=== PATIENT | male | born 1955 | race Caucasian/White ===

== ENCOUNTER 2017-05-29 08:40 | Day surgery (SDC) | payer OTHER ==
[2017-05-27 13:14] VITALS: BMI 24.8
[~2017-05-29 08:40] MED LIST: LACTATED RINGERS 1,000 ML IV SCH
[2017-05-29 08:56] VITALS: TEMP 98.2
[2017-05-29] MEDS ORDERED: LIDOCAINE 1% 20 ML VIAL (10MG/ML) FOR IV START INTRADERMA ONE (08:56)
[2017-05-29] MEDS ORDERED: LACTATED RINGERS 1,000 ML IV ONE (08:56)
[2017-05-29] MEDS ORDERED: PROPOFOL 10 MG/ML 20 ML VIAL IV ONE (09:29)
--- NOTE | 2017-05-29 09:52 | P.PCN ---
Date of Procedure: 05/29/17 Preoperative Diagnosis: Postoperative Diagnosis: Procedure(s) Performed: BRIEF HISTORY: Patient is a 61-year-old pleasant white male, scheduled for an elective colonoscopy as a part of screening for colorectal neoplasia. PROCEDURE PERFORMED: Colonoscopy with biopsy. PREOPERATIVE DIAGNOSIS: Screening for colon cancer. IV sedation per Anesthesia. PROCEDURE: After informed consent was obtained, the patient, was brought into the endoscopy unit. IV sedation was administered by Anesthesia under continuous monitoring. Digital rectal examination was normal. Initially the Olympus CF- 160 flexible video colonoscope was then inserted in the rectum, gradually advanced into the cecum without any difficulty. Careful examination was performed as the scope was gradually being withdrawn. Ileocecal valve and the appendiceal orifice were visualized and appeared normal. Prep was excellent. The base of the cecum there was a 5 mm polyp that was removed by biopsy. In the ascending colon there was a 2 mm polyp that was removed by biopsy. The rest of the mucosa of the cecum, ascending colon, transverse colon, descending colon, sigmoid colon, and rectum appeared normal. In the proximal rectum there was a 5 mm polyp removed by biopsy. Retroflexion was performed in the rectum and no lesions were seen. The patient tolerated the procedure well. IMPRESSION: 5 mm cecal polyp status post removal by biopsy 2 mm ascending colon polyp status post biopsy 5 mm proximal rectal polyp status post biopsy RECOMMENDATIONS: Findings of this examination were discussed with the patient as well as his family. He was advised to follow with the biopsy results. If the biopsy shows a tubular adenoma he can have a repeat colonoscopy in 5 years. Implants: Indications for Procedure: Operative Findings: Description of Procedure:
[2017-05-29 10:08] VITALS: BP 135/92; PULSE 68; RESP 18
== END 2017-05-29 10:37 | disposition home or self-care (01) ==
LOC: ORWHC2ENDO 08:40
PROVIDERS: ATTEND Internal Medicine Gastroenterology
DX: Z12.11 Encounter for screening for malignant neoplasm of colon (principal); D12.0 Benign neoplasm of cecum; D12.8 Benign neoplasm of rectum; I10 Essential (primary) hypertension; Z86.718 Personal history of other venous thrombosis and embolism; Z79.899 Other long term (current) drug therapy
CPT/HCPCS: 88305; 45380; J2704

== ENCOUNTER 2022-01-22 08:44 | Day surgery (SDC) | payer MEDICARE, BC ==
[2022-01-20 14:32] VITALS: BMI 23.8
[~2022-01-22 08:44] MED LIST changes: +LIDOCAINE 1% (10MG/ML) FOR IV START INTRADERMA PRN
[2022-01-22 09:52] VITALS: TEMP 97.6
[2022-01-22] MEDS ORDERED: PROPOFOL 10 MG/ML 20 ML VIAL IV ONE (10:21)
--- NOTE | 2022-01-22 10:33 | P.PCN ---
Date of Procedure: 01/22/22 Procedure(s) Performed: BRIEF HISTORY: Patient is a 66-year-old pleasant male scheduled for an elective colonoscopy as a part of evaluation of prior history of colon polyps. Last colonoscopy was 5 years ago. PROCEDURE PERFORMED: Colonoscopy with snare polypectomy PREOPERATIVE DIAGNOSIS: Review of colon polyps. IV sedation per Anesthesia. PROCEDURE: After informed consent was obtained, the patient, was brought into the endoscopy unit. IV sedation was administered by Anesthesia under continuous monitoring. Digital rectal examination was normal. Initially the Olympus CF-160 flexible video colonoscope was then inserted in the rectum, gradually advanced into the cecum without any difficulty. Careful examination was performed as the scope was gradually being withdrawn. Ileocecal valve and the appendiceal orifice were visualized and appeared normal. Prep was excellent. Mucosa of the cecum, ascending colon, transverse colon, descending colon, sigmoid colon, and rectum appeared normal. The proximal rectum there was a 7 mm polyp that was removed by snare polypectomy Retroflexion was performed in the rectum and no lesions were seen. The patient tolerated the procedure well. IMPRESSION: 7 mm rectal polyp status post polypectomy Rest of the colon appeared normal . RECOMMENDATIONS: Findings of this examination were discussed with the patient [as well as a family. He was advised to follow with the biopsy results. If the biopsy reveals adenoma he can have a repeat colonoscopy in 5 years.
[2022-01-22 10:59] VITALS: BP 133/93; PULSE 57; RESP 18
== END 2022-01-22 11:25 | disposition home or self-care (01) ==
LOC: ORWHC2ENDO 08:44
PROVIDERS: ATTEND Internal Medicine Gastroenterology
DX: Z12.11 Encounter for screening for malignant neoplasm of colon (principal); D12.8 Benign neoplasm of rectum; Z86.010 Personal history of colon polyps; I10 Essential (primary) hypertension; Z79.899 Other long term (current) drug therapy
CPT/HCPCS: 88305; 45385; J2704

== ENCOUNTER → 2022-07-01 | Outpatient (CLI) | payer MEDICARE, BC ==
--- NOTE | 2022-07-02 08:45 | CA ---
Transthoracic Echo Report Name: Greg Ruiz Age: 66 Gender: M : 1955 Exam Date: 07/01/2022 11:21 Exam Location: [place] [facility] Ht (in): 76 Wt (lb): 195 Ordering Physician: Thiago Crane MD Attending/Referring Phys: Center Customer Service Associate Shirin Gallagher RDCS Procedure CPT: Indications: M79.89 leg swelling Cardiac Hx: Technical Quality: Fair Contrast 1: Total Dose (mL): Contrast 2: Total Dose (mL): MEASUREMENTS (Male / Female) Normal Values 2D ECHO LV Diastolic Diameter PLAX 4.5 cm 4.2 - 5.9 / 3.9 - 5.3 cm LV Systolic Diameter PLAX 3.8 cm IVS Diastolic Thickness 1.8 cm 0.6 - 1.0 / 0.6 - 0.9 cm LVPW Diastolic Thickness 1.2 cm 0.6 - 1.0 / 0.6 - 0.9 cm LV Relative Wall Thickness 0.7 RV Internal Dim ED PLAX 4.2 cm LA Volume 107.7 cm??? 18 - 58 / 22 - 52 cm??? M-MODE Aortic Root Diameter MM 2.9 cm LA Systolic Diameter MM 5.0 cm LA Ao Ratio MM 1.7 AV Cusp Separation MM 2.4 cm DOPPLER AV Peak Velocity 121.9 cm/s AV Peak Gradient 5.9 mmHg LVOT Peak Velocity 117.5 cm/s LVOT Peak Gradient 5.5 mmHg MV Area PHT 2.3 cm??? Mitral E Point Velocity 54.5 cm/s Mitral A Point Velocity 54.5 cm/s Mitral E to A Ratio 1.0 MV Deceleration Time 325.2 ms TR Peak Velocity 303.3 cm/s TR Peak Gradient 36.8 mmHg Right Ventricular Systolic Press 39.8 mmHg FINDINGS Left Ventricle Mildly increased left ventricular wall thickness. Normal left ventricular systolic function with no obvious regional wall motion abnormalities. Left ventricular ejection fraction is estimated at 55-60 %. Right Ventricle Mild right ventricular dilatation. Mild pulmonary hypertension. Right Atrium Normal right atrial size. Left Atrium Moderate left atrial dilatation. Mitral Valve Moderate mitral regurgitation.myxomatous (redundant) mitral valve. Bileaflet mitral valve prolapse. Aortic Valve Trileaflet aortic valve. Trace aortic regurgitation. Tricuspid Valve Structurally normal tricuspid valve. Mild tricuspid regurgitation. Pulmonic Valve Trace pulmonic regurgitation.structurally normal pulmonic valve. Pericardium No pericardial effusion. Aorta Normal size aortic root and proximal ascending aorta. CONCLUSIONS 1. Normal size and systolic function 2. Mitral valve prolapse with moderate mitral regurgitation 3. Mild tricuspid with trace aortic and pulmonic regurgitation Previewed by: Dr. Thiago Barker MD (Electronically Signed) Final Date: 02 July 2022 08:44
== END | disposition home or self-care (01) ==
LOC: RADECHMAIN 11:14
PROVIDERS: ATTEND Internal Medicine
DX: I08.0 Rheumatic disorders of both mitral and aortic valves (principal)
CPT/HCPCS: 93306

== ENCOUNTER → 2024-01-05 | Outpatient (CLI) | payer MEDICARE, BC ==
[2024-01-05 08:16] LABS: Basophils # (A) 0.1 k/uL (0-0.2); Basophils % (A) 1 %; Eosinophils # (A) 0.5 k/uL (0-0.7); Eosinophils % (A) 9 %; HCT 42.9 % (39.0-53.0); HGB 13.8 gm/dL (13.0-17.5); Lymphocytes # (A) 1.2 k/uL (1.0-4.8); Lymphocytes % (A) 19 %; MCH 31.2 pg (25.0-35.0); MCHC 32.2 g/dL (31.0-37.0); MCV 97.1 fL (80.0-100.0); Mean Platelet Volume 7.4; Monocytes # (A) 0.4 k/uL (0-1.0); Monocytes % (A) 7 %; Neutrophils # (A) 3.8 k/uL (1.3-7.7); Neutrophils % (A) 62 %; Platelet Count 275 k/uL (150-450); RBC 4.42 m/uL (4.30-5.90); RDW 11.4 % (11.5-15.5); WBC 6.1 k/uL (3.8-10.6)
[2024-01-05 09:52] LABS: ALT 21 U/L (4-49); AST 33 U/L (17-59); African American GFR (CKD) >90 (>60 ml/min/1.73 sqM); Albumin 4.5 g/dL (3.5-5.0); Albumin/Globulin Ratio 1.9; Alkaline Phosphatase 55 U/L (38-126); Anion Gap 9 mmol/L; Blood Urea Nitrogen 12 mg/dL (9-20); Calcium 9.5 mg/dL (8.4-10.2); Carbon Dioxide 25 mmol/L (22-30); Chloride 105 mmol/L (98-107); Globulin 2.4 g/dL; Glucose 93 mg/dL (74-99); Non-African American GFR(CKD) >90 (>60 ml/min/1.73 sqM); Potassium 4.3 mmol/L (3.5-5.1); Sodium 139 mmol/L (137-145); Total Bilirubin 0.7 mg/dL (0.2-1.3); Total Protein 6.9 g/dL (6.3-8.2)
[2024-01-05 18:57] LABS: Chol/HDL Ratio 3.31 Ratio; LDL Cholesterol,Calculated 101.5 mg/dL (0.0-131.0)
== END | disposition home or self-care (01) ==
LOC: LABWHC1 07:16
PROVIDERS: ATTEND Internal Medicine Clinical Cardiac Electrophysiology
DX: I34.0 Nonrheumatic mitral (valve) insufficiency (principal); I48.19 Other persistent atrial fibrillation; E78.5 Hyperlipidemia, unspecified
CPT/HCPCS: 36415; 80053; 80061; 83735; 84443; 85025

== ENCOUNTER → 2024-01-28 | Outpatient (CLI) | payer MEDICARE, BC ==
[2024-01-28 16:39] VITALS: BP 182/99; PULSE 49; RESP 16; TEMP 97.9
--- NOTE | 2024-01-28 16:51 | P.SLEEP ---
History of Present Illness DATE: 01/28/2024 CONSULTATION/NEW PATIENT EVALUATION HISTORY OF PRESENT ILLNESS/SLEEP-WAKE EVALUATION: 68-year-old gentleman had be en evaluated in the sleep center for possible obstructive sleep apnea hypopnea syndrome. SLEEP SCHEDULE: Usually sleep schedule from 9 PM to 5:30 AM 7 days a week. FALLING ASLEEP: No problems with falling asleep. DURING SLEEP: Patient snores and wakes up from sleep 4 times with nocturia no history of hypnogogical hallucinations, sleep paralysis, or cataplexy. DURING THE DAY/WAKE STATE: In the morning patient wake up tired. Mill[place] sleepiness scale is 3. Patient may take 1 nap around noon time. PAST MEDICAL HISTORY: Atrial fibrillation, hyperlipidemia, hypertension. PAST SURGICAL HISTORY: None. MEDICATIONS: Please see below. SOCIAL HISTORY: Please see below.. FAMILY HISTORY: Heart problems. REVIEW OF SYSTEMS: Snoring, multiple awakenings from sleep, episodes of sleepiness during the day. No fevers. No double vision. No recent chest pain. No shortness of breath. No abdominal pain. No bleeding episodes. No blood in urine. No seizure episodes. PHYSICAL EXAMINATION: GENERAL: A pleasant patient without any distress. VITAL SIGNS: Please see below. HEENT: PERRLA, EOMI. Evaluation of oropharynx showed tongue protrudes midline, low position of soft palate Mallampati 23, retrognathia 2 mm. NECK: Supple. No JVD. Thyroid is not palpable. 16.5 inches in circumference. LUNGS: Clear to percussion and to auscultation. Good air exchange. No wheezing or rhonchi. HEART: S1, S2 regular. No murmurs, gallops or rubs. ABDOMEN: Soft and nontender. Bowel sounds are present. No organomegaly appreciated. EXTREMITIES: No clubbing or cyanosis. EMERY WHEEL MOLDER: Awake, alert, and oriented x3. Cranial nerves 2 to 7 intact. There is no fasciculation or atrophy noted. No focal deficits observed. ASSESSMENT: 1. Snoring, multiple awakenings from sleep, small oropharyngeal airspace. Pos sible obstructive sleep apnea hypopnea syndrome. 2. History of atrial fibrillation. 3. Hypertension. 4. Hyperlipidemia. PLAN: 1. Polysomnography for evaluation of patient's breathing during sleep. 2. Following plan after reading sleep study 3. Preferable position during sleep on the side. 4. No driving if patient feels any sleepiness. Patient is aware of civil and criminal liability for unsafe driving. 5. Sleep hygiene with regular sleep time for at least 7.5-8 hours. 6. Watching weight. Thank you very much for referring this patient for consultation. Sincerely, Tejas Fraire MD, PhD, FAASM. Diplomat of [place] [employer], Sleep Medicine Board by [place] [employer] [place] [employer] Vtc Technician of [facility] [place] Past Medical History Past Medical History: Atrial Fibrillation, Hypertension History of Any Multi-Drug Resistant Organisms: None Reported Past Surgical History: No Surgical Hx Reported Additional Past Surgical History / Comment(s): Colonoscopy Past Anesthesia/Blood Transfusion Reactions: No Reported Reaction Past Psychological History: No Psychological Hx Reported Smoking Status: Never smoker Past Alcohol Use History: Rare Past Drug Use History: None Reported - Past Family History Brother(s) Family Medical History: Deep Vein Thrombosis (DVT) Sister(s) Family Medical History: Deep Vein Thrombosis (DVT), Pulmonary Embolus Medications and Allergies Home Medications Medication Instructions Recorded Confirmed Type Cholecalciferol [Vitamin D3 (25 50 mcg PO DAILY 01/20/22 01/20/22 History Mcg = 1000 Iu)] Losartan Potassium [Cozaar] 100 mg PO DAILY 01/20/22 01/20/22 History Multivit-Min/FA/Lycopen/Lutein 1 each PO DAILY 01/20/22 01/20/22 History [Centrum Silver Tablet] Spironolactone [Aldactone] 12.5 mg PO Q48H 01/20/22 01/22/22 History amLODIPine [Norvasc] 10 mg PO DAILY 01/20/22 01/20/22 History Metoprolol Succinate [Kapspargo 50 mg PO DAILY 01/28/24 01/28/24 History Sprinkle] Rosuvastatin [Crestor] 10 mg PO 01/28/24 History Spironolactone-Hctz 25-25Mg 25 mg PO RT-QID 01/28/24 01/28/24 History [Aldactazide 25-25 MG] Allergies Allergy/AdvReac Type Severity Reaction Status Date / Time No Known Allergies Allergy Verified 01/22/22 09:40 Physical Exam Vitals: Vital Signs Temp Pulse Resp BP Pulse Ox 01/28/24 16:06 97.9 F 49 L 16 182/99 98 Intake and Output 01/28/24 01/28/24 01/28/24 06:59 14:59 22:59 Other: Weight 87.997 kg Sleep Note - Sleep Data ESS Total: 3 - Sleep Note Sleep Note: Temperature: 97.9 F Pulse Rate: 49 Respiratory Rate: 16 Blood Pressure: 182/99 SpO2: 98 Height: 6 ft 2.25 in Weight: 87.997 kg BMI: Neck Circumference: 16
== END ==
LOC: 3 N SLEEP 15:10
PROVIDERS: ATTEND Internal Medicine
DX: R06.83 Snoring (principal); I10 Essential (primary) hypertension; E78.5 Hyperlipidemia, unspecified; Z86.79 Personal history of other diseases of the circulatory system; Z79.899 Other long term (current) drug therapy
CPT/HCPCS: 99211

== ENCOUNTER 2024-03-01 19:15 | Outpatient (CLI) | payer MEDICARE, BC ==
--- NOTE | 2024-03-03 10:53 | P.PCN ---
Description of Procedure: POLYSOMNOGRAPHY REPORT PROCEDURE(S)/DATE(S): Polysomnography 03/01/2024 CLINICAL: Patient has been seen in the sleep center for evaluation of obstructive sleep apnea-hypopnea syndrome. Please see my consultation. Sleep study has been done for evaluation of patient breathing during the sleep. PROCEDURE: The standard montage for clinical polysomnography included the electroencephalogram, the electrooculogram, the mentalis surface electromyography and Lead II cardiography. The respiratory battery consisted of measurements of nasal/buccal air flow, pressure transducer measurements from nose, thoracic and/or abdominal effort and intercostal surface electromyography. Video monitoring has been done to check for any parasomnia events. Nocturnal oxyhemoglobin saturations were obtained by finger oximetry. Step-sandoval titration with positive airway pressure was utilized to control the respiratory events, if necessary. RESULTS: During the diagnostic sleep study sleep efficiency was significantly decreased to 62.5%. Latency to sleep onset was prolonged at 35.5 min. Sleep architecture showed stage NI was increased to 11.5%, Delta sleep was absent 0%, REM sleep was increased to 30.7%. Respiratory channel showed 11 obstructive apneas, 6 mixed apneas, 5 central apneas, 133 hypopneas with lowest oxygen level 61%. Total apnea hypopnea index was 34.4. Oxygen level was below normal for 52 minutes. Heart rate was in the range between 49 and 56, average 52. EMG showed 18 periodic limb movements per hour with 0.2 micro-arousals per hour. IMPRESSIONS: 1. Severe obstructive sleep apnea hypopnea syndrome. 2. Periodic limb movements have been documented without significant related microarousal's. Please see other impressions from consultation PLAN: 1. The patient will have PAP titration for correction of respiratory abnormalities during the sleep. 2. Watching weight. 3. Sleep hygiene with regular time in bed for at least 7-1/2 hours. 4. No driving if feeling sleepiness. 5. Please check iron profile including ferritin level. Low level of iron may increase the risk for periodic limb movements. Thank you very much for allowing me to participate in the management of your patient. Sincerely, Tejas Fraire MD, PhD, FAASM. Diplomat of [place] [employer] Medicine, Sleep Medicine Board by [place] [employer] Medicine [employer] Supervisor of [facility] [place]
== END 2024-03-02 05:00 | disposition home or self-care (01) ==
LOC: 3 N SLEEP 19:15
PROVIDERS: ATTEND Internal Medicine
DX: G47.33 Obstructive sleep apnea (adult) (pediatric) (principal); G47.61 Periodic limb movement disorder
CPT/HCPCS: 95810

== ENCOUNTER 2024-03-28 19:20 | Outpatient (CLI) | payer MEDICARE, BC ==
--- NOTE | 2024-03-30 13:56 | P.PCN ---
Description of Procedure: CLINICAL: Titration with positive air pressure has been done for correction of respiratory abnormalities during sleep. DESCRIPTION OF PROCEDURE: The standard montage for clinical polysomnography included the electroencephalogram, the electrocardiogram, the mentalis surface electromyography and Lead II cardiography. The respiratory battery consisted of measurements of nasal /buccal air flow, pressure transducer measurements from the nose, thoracic and /or abdominal effort and intercostal surface electromyography. Video monitoring has been done to check for any parasomnia events. Nocturnal oxyhemoglobin saturations were obtained by finger oximetry. Step-sandoval titration with positive airway pressure was utilized to control respiratory events. Raw data of sleep recording has been reviewed and is adequate. RESULTS: Sleep efficiency was extremely short 60.7%. Latency to sleep onset was extremely long 41.0 minutes.]. Sleep architecture showed stage N1 was short 3.9%, Delta sleep was absent 0%, REM sleep was slightly decreased to 18.1%. Heart rate was minimum 46 BPM, maximum 52 BPM, average 49 BPM. EMG showed 0 periodic limb movements per hour. PAP titration have been done with CPAP up to the pressure 9 cm H2O. The best results were at the pressure 8 cm H2O. Apnea hypopnea index reduced to 1.5. IMPRESSION: 1. Obstructive sleep apnea hypopnea syndrome mostly on controle with PAP treatment. 2. No significant periodic limb movements have been documented. Please see other impressions from consultation. PLAN: 1. The patient will have treatment with positive air pressure equipment with the level of pressure AutoPAP 5-9 cm H2O and should use it every night for the whole night. 2. Watching weight. 3. Sleep hygiene with regular time in bed for at least 8 hours. 4. No driving if feeling any sleepiness. 5. I will see the patient for follow up visit to explain the results of the test, recommendations, check compliance with treatment and make any necessary adjustment related to mask fitting, pressure and humidification. Thank you very much for allowing me to participate in the management of your patient. Sincerely, Tejas Fraire MD, PhD, FAASM Diplomat of [place] [employer] Sleep Medicine Board of [place] [employer] of [employer] Medicine Aircraft Painter Apprentice of [facility] [place] cc: Smith Maya MD
== END 2024-03-29 05:15 | disposition home or self-care (01) ==
LOC: 3 N SLEEP 19:20
PROVIDERS: ATTEND Internal Medicine
DX: G47.33 Obstructive sleep apnea (adult) (pediatric) (principal); I10 Essential (primary) hypertension; E78.5 Hyperlipidemia, unspecified; I48.91 Unspecified atrial fibrillation; Z79.899 Other long term (current) drug therapy; Z79.01 Long term (current) use of anticoagulants
CPT/HCPCS: 95811

== ENCOUNTER → 2024-03-29 | Outpatient (CLI) | payer MEDICARE, BC ==
[2024-03-29 11:38] LABS: HCT 41.7 % (39.6-50.0); HGB 14.4 g/dL (13.0-17.0); MCH 32.1 pg (27.0-32.0); MCHC 34.5 g/dL (32.0-37.0); MCV 92.9 FL (80.0-97.0); Mean Platelet Volume 9.4 FL (9.5-12.2); NRBC Per 100 WBC 0 X 10*3/uL (0.00-0.01); Platelet Count 262 X 10*3/uL (140-440); RBC 4.49 X 10*6/uL (4.40-5.60); RDW 11.4 % (11.5-14.5); WBC 6.04 X 10*3/uL (4.50-10.00)
[2024-03-29 11:51] LABS: Blood Urea Nitrogen 10.7 mg/dL (9.0-27.0); Carbon Dioxide 25.8 mmol/L (21.6-31.8); Chloride 100 mmol/L (96-109); Potassium 4.7 mmol/L (3.5-5.5); Sodium 138 mmol/L (135-145)
== END | disposition home or self-care (01) ==
LOC: LABPAT 07:44
PROVIDERS: ATTEND Internal Medicine Clinical Cardiac Electrophysiology
DX: Z01.812 Encounter for preprocedural laboratory examination (principal); I48.0 Paroxysmal atrial fibrillation
CPT/HCPCS: 80051; 82565; 84520; 85027

== ENCOUNTER 2024-04-04 05:52 | Day surgery (SDC) | payer MEDICARE, BC ==
[2024-03-29 15:49] VITALS: BMI 24.0
[2024-04-04] MEDS: SODIUM CHLORIDE 0.9% 1,000 ML IV SCH (06:27)
[2024-04-04] MEDS: IV FLUID CONTINUATION 1,000 ML IV ONE (06:27)
[2024-04-04 07:00] LABS: ALT 21 U/L (4-49); AST 37 U/L (17-59); African American GFR (CKD) >90 (>60 ml/min/1.73 sqM); Albumin 4.7 g/dL (3.5-5.0); Alkaline Phosphatase 52 U/L (38-126); Anion Gap 5 mmol/L; Blood Urea Nitrogen 11 mg/dL (9-20); Calcium 9.6 mg/dL (8.4-10.2); Carbon Dioxide 28 mmol/L (22-30); Chloride 104 mmol/L (98-107); Glucose 100 mg/dL (74-99); Non-African American GFR(CKD) >90 (>60 ml/min/1.73 sqM); Potassium 3.9 mmol/L (3.5-5.1); Sodium 137 mmol/L (137-145); Total Bilirubin 1.1 mg/dL (0.2-1.3); Total Protein 7.2 g/dL (6.3-8.2)
[2024-04-04] MEDS: LIDOCAINE 1% INJ 10MG/ML (20 ML MDV) SQ ONE ×2 (07:09→08:09)
[2024-04-04] MEDS ORDERED: PHENYLEPHRINE-0.9% NACL SYG 1,000 MCG/10 ML SYRINGE ONE (07:36)
[2024-04-04] MEDS ORDERED: SUCCINYLCHOLINE CHLORIDE 200 MG/10 ML VIAL IV ONE (07:36)
[2024-04-04] MEDS ORDERED: ePHEDrine 50 MG/ML 1 ML VIAL ONE (07:36)
[2024-04-04] MEDS ORDERED: PROPOFOL 10 MG/ML 20 ML VIAL IV ONE (07:36)
[2024-04-04] MEDS ORDERED: PHENYLEPHRINE 10 MG/ML VIAL ONE (07:36)
[2024-04-04] MEDS ORDERED: HEPARIN SODIUM,PORCINE 10,000 UNIT/ML 1 ML VIAL ONE (07:36)
[2024-04-04] MEDS ORDERED: MIDAZOLAM 2 MG/2 ML VIAL ONE (07:36)
[2024-04-04] MEDS ORDERED: fentaNYL (PF) 50 MCG/ML 2 ML AMP ONE (07:36)
--- NOTE | 2024-04-04 07:51 | P.HPCAR ---
History of Present Illness This is Dr. Cabrera dictating an H/P on this patient The patient was interviewed and examined IMPRESSION / ASSESSMENT: Symptomatic paroxysmal atrial fibrillation with RVR, recent sustained episode Symptomatic episodes over the last 10 years, paroxysmal Longstanding history of hypertension with LVH and asymmetric hypertrophy Hypertensive heart disease Severe left atrial enlargement Normal TSH PLAN: A-fib ablation, heparin dose calculated for procedure transfer tech Strict home monitoring of blood pressure Lipid panel on rosuvastatin 10 mg p.o. daily HPI Patient has had recurrent palpitations for the last 10 years with recently had an episode of sustained atrial fibrillation with RVR, very symptomatic Denies any fever chills cough expectoration Denies any chest pain undue shortness of breath loss of consciousness ROS: No fever chills or rigors, no cough, phlegm or expectoration, no nausea, vomiting or diarrhea, no hematuria, dysuria, no musculoskeletal complaints, no strokes or seizures, no skin lesions. EXAMINATION: Blood pressure elevated 163/ 100 Repeat blood pressure 148/81 mmHg Breath sounds are clear no rhonchi no crackles External jugular vein positive in the supine position Clear lungs no rhonchi no crackles Heart sounds are normal normal S1 normal S2 no murmurs abdomen soft nontender Extremities warm no edema REVIEW OF LABS, ECG & MEDICAL DATA Sodium 137 potassium 3.9 BUN 11 and creatinine 0.77 TSH 3.5 Physical Exam Vitals: Vital Signs Temp Pulse Resp BP BP Pulse Ox 04/04/24 07:08 97.8 F 63 16 171/102 163/101 96 Intake and Output 04/03/24 04/04/24 04/04/24 22:59 06:59 14:59 Intake Total 0 Balance 0 Intake: IV 0 Other: Weight 86.9 kg 86.9 kg Past Medical History Past Medical History: Atrial Fibrillation, Hypertension Additional Past Medical History / Comment(s): SEE DR. CABRERA'S H&P History of Any Multi-Drug Resistant Organisms: None Reported Past Surgical History: No Surgical Hx Reported Additional Past Surgical History / Comment(s): Colonoscopy Past Anesthesia/Blood Transfusion Reactions: No Reported Reaction Past Psychological History: No Psychological Hx Reported Smoking Status: Never smoker Past Alcohol Use History: None Reported Past Drug Use History: None Reported - Past Family History Brother(s) Family Medical History: Deep Vein Thrombosis (DVT) Sister(s) Family Medical History: Deep Vein Thrombosis (DVT), Pulmonary Embolus Physical Examination Vital Signs Temp Pulse Resp BP BP Pulse Ox 04/04/24 07:08 97.8 F 63 16 171/102 163/101 96 Intake and Output 04/03/24 04/04/24 04/04/24 22:59 06:59 14:59 Intake Total 0 Balance 0 Intake: IV 0 Other: Weight 86.9 kg 86.9 kg Results 04/04/24 06:07 Cardiac Enzymes 04/04/24 Range/Units 06:07 AST 37 (17-59) U/L Comprehensive Metabolic Panel 04/04/24 Range/Units 06:07 Sodium 137 (137-145) mmol/L Potassium 3.9 (3.5-5.1) mmol/L Chloride 104 (98-107) mmol/L Carbon Dioxide 28 (22-30) mmol/L BUN 11 (9-20) mg/dL Creatinine 0.77 (0.66-1.25) mg/dL Glucose 100 H (74-99) mg/dL Calcium 9.6 (8.4-10.2) mg/dL AST 37 (17-59) U/L ALT 21 (4-49) U/L Alkaline Phosphatase 52 (38-126) U/L Total Protein 7.2 (6.3-8.2) g/dL Albumin 4.7 (3.5-5.0) g/dL Current Medications Generic Name Dose Route Start Last Admin Trade Name Freq PRN Reason Stop Dose Admin Sodium Chloride 1,000 mls @ 50 mls/hr 04/04/24 05:45 04/04/24 06:27 Saline 0.9% IV 05/04/24 05:46 50 mls/hr .Q20H PATRICK Administration Intake and Output 04/03/24 04/04/24 04/04/24 22:59 06:59 14:59 Intake Total 0 Balance 0 Intake: IV 0 Other: Weight 86.9 kg 86.9 kg Patient Weight 04/05/24 06:59 Weight 86.9 kg 04/04/24 06:07
[2024-04-04] MEDS: HEPARIN SOD,PORK IN 0.45% NACL 25,000 UNIT in 0.45% NACL 1 250ML.BAG IV ONE (08:00)
[2024-04-04] MEDS: IOPAMIDOL-370 100ML BTL INJ ONE (10:01)
[2024-04-04] MEDS: LACTATED RINGERS 1,000 ML IV ONE (10:11)
[2024-04-04] MEDS ORDERED: ACETAMINOPHEN TAB 325 MG TAB PO PRN (10:29)
--- NOTE | 2024-04-04 10:37 | P.PRLE ---
RE: Greg Ruiz Dear Dr. Francesco Garza underwent an A-fib ablation for very symptomatic episodes of atrial fibrillation with RVR. Following that we could not induce any atrial fibrillation both on and off Isopril with rapid pacing from multiple sites in the right atrium and the coronary sinus His intracardiac echo confirmed a very large left atrium His thoracic ascending aorta does appear to be at 4 cm as his transthoracic echo suggested When he came in his blood pressure was very high and therefore of asked him to monitor his blood pressure morning and evening on his current medications His primary cardiac problem appears to be hypertensive heart disease secondary to uncontrolled hypertension for many years with moderate to severe LVH moderate to severe LVH If you have any questions, please do not hesitate to give me a call Sincerely Kirt Cabrera
--- NOTE | 2024-04-04 11:15 | P.EPPROC ---
- EP Procedure Note Electrophysiology Procedure Note: PROCEDURE A. fib ablation/PVI and left atrial septal ablation DIAGNOSIS Paroxysmal atrial fibrillation, symptomatic, refractory to therapy Hypertensive heart disease, left atrial enlargement RESULT No left atrial appendage mass seen on intracardiac echo, left atrial enlargement, counterclockwise cardiac rotation Successful A. fib ablation/pulmonary vein isolation of all veins using cryo- ablation Left atrial septal ablation Complete entrance block in all 4 veins confirmed No evidence for phrenic nerve injury Esophageal deflection YES PROCEDURE DETAILS Written informed consent prior to procedure. Patient brought to the EP lab. General anesthesia given. Heparin administered. A city maintained above 300 seconds Both groins prepped and draped per protocol and venous sheaths placed. Esophagus intubated, circa catheter for temperature monitoring an endoscope for possible esophageal deflection. Phrenic nerve monitoring performed. Esophageal temperature monitoring performed. Esophageal deflection performed if circa catheter overlapping with the balloon or circa temperature less than 27.5C Intracardiac echocardiography performed. Pericardium evaluated. Left atrial appendage evaluated. Left atrium evaluated along with pulmonary veins Transseptal catheterization performed under fluoroscopic guidance and intracardiac echo guidance Cryoablation sheath exchanged, balloon catheter along with achieve catheter placed in the left atrium. Pulmonary veins isolated in the following sequence: Left superior pulmonary vein followed by left inferior pulmonary vein, followed by right inferior pulmonary vein and lastly right superior pulmonary vein. Phrenic nerve stimulation along with capture thresholds within the SVC and right superior pulmonary vein to identify the phrenic nerve proximity to the cryo- balloon. Pulmonary veins isolated and confirmed with entrance and exit block. Phrenic nerve integrity confirmed at the end of the procedure Ablation of the left atrial septum performed with cannulation of the superior branch of the right inferior to achieve ablation of the posterior septum of the left atrium. Ablation of electrograms confirmed Diagnostic catheters for the high right atrium, His bundle, coronary sinus placed. LA and RA pressures recorded RA pressure: 10/2/5 LA pressure: 13/1/6 Diagnostic EP study with coronary sinus pacing and recording Baseline measurements: Sinus cycle length 123 5 ms, FL interval 170 ms, QRS 120 ms and QT interval 490 ms Sinus node recovery times were 1603, 1621 and 1734. Corresponding corrected sinus node recovery times were prolonged AV node Wenckebach block 310 ms Burst stimulation from multiple sites both on and off high-dose Isopril did not induce atrial fibrillation Venous sheaths were removed and hemostasis assured with a closure device. Patient extubated and transferred to recovery Increase procedural time During ablation multiple attempts had to be made to move the esophagus a safe distance of the from the pulmonary vein draining cryoablation, to avoid excessive thermal cooling of the esophagus This took extra time and effort to keep the esophagus a safe distance away from the cryoablation balloon. Patient had a very counterclockwise rotated heart and a very posteriorly directe d right inferior pulmonary vein with 3 early tributaries. Occlusion of the right superior pulmonary vein was particularly challenging was successfully performed with complete isolation Far field signals from the SVC with confirmed with pacing maneuvers The left inferior pulmonary vein was also difficult to occlude but was finally successfully isolated. An extra carinal lesion was also applied between the left superior and left inferior pulmonary veins to achieve [place] antral ablation Multiple attempts needed for successful cryoablation isolation of the right inferior and right superior pulmonary veins PROCEDURES PERFORMED Diagnostic EP study CS pacing and recording Left and right transseptal catheterization Catheter the mapping of the tachycardia Intracardiac echocardiography Pulmonary vein isolation with transseptal and comprehensive EPS, 25466 Extended procedure duration Drug infusion, +66021 Linear ablation, left atrium, +14211
[2024-04-04] MEDS: amLODIPine 5 MG TAB PO STA (17:26)
[2024-04-04] MEDS: ACETAMINOPHEN IV (For NPO) 1,000 MG in EMPTY BAG 1 BAG IVPB ONE (17:58)
[2024-04-04] MEDS: APIXABAN 5 MG TAB PO SCH (20:46)
[2024-04-04] MEDS: amLODIPine 5 MG TAB PO SCH (20:46)
[2024-04-05 07:06] VITALS: BP 147/100; PULSE 65; RESP 16; TEMP 98.2
[2024-04-05] MEDS ORDERED: LOSARTAN 50 MG TAB PO SCH (09:00)
[2024-04-05] MEDS ORDERED: VALSARTAN 160 MG TAB PO SCH ×2 (09:00→21:00)
[2024-04-05] MEDS ORDERED: amLODIPine 5 MG TAB PO SCH (09:00)
[2024-04-05] MEDS: amLODIPine 10 MG TAB PO SCH (09:30)
[2024-04-05] MEDS: METOPROLOL SUCCINATE (ER) 50 MG TAB.ER.24H PO SCH (09:30)
[2024-04-05] MEDS: SPIRONOLACTONE 25 MG TAB PO SCH (09:30)
[2024-04-05] MEDS: ATORVASTATIN 20 MG TAB PO SCH (09:30)
[2024-04-05 10:48] LABS: Chol/HDL Ratio 3.21 Ratio
--- NOTE | 2024-04-05 12:24 | P.DS ---
Providers Attending physician: Kirt Cabrera Primary care physician: Smith Maya MD Hospital Course: Patient is doing well post procedure Ambulating around in the hallways. No chest discomfort no dizziness no lightheadedness However his blood pressure has been elevated intermittently Last night I started him on valsartan 320 mg p.o. daily and discontinued losartan I also changed amlodipine from 5 mg and increase it to 10 mg p.o. daily as well as daily dose of spironolactone On examination Blood pressure 126/70 and 147/100 mmHg pulse rate in the 60s and 70s afebrile Breath sounds are clear no rhonchi no crackles Heart sounds are normal Breath sounds are clear Groins of healed well Impression Paroxysmal atrial fibrillation, symptomatic status post PVI and left AT septal ablation Hypertension, uncontrolled Hypertensive heart disease with significant left atrial enlargement and LVH Plan Continue Eliquis uninterrupted Switch to valsartan 320 mg p.o. daily and stop losartan Increase amlodipine to 10 mg p.o. daily Increase spironolactone 25 mg p.o. daily, patient was previously taking it only every other day Discharge home today and follow-up in about 7 to 10 days Home blood pressure monitoring morning as well as evening for 1 week. Discussed with patient and his Plan - Discharge Summary Discharge Rx Participant: No New Discharge Prescriptions: New Spironolactone 25 mg PO DAILY #90 tablet Valsartan 320 mg PO DAILY #90 tab Discontinued Losartan Potassium [Cozaar] 100 mg PO DAILY Spironolactone [Aldactone] 25 mg PO Q48H No Action amLODIPine [Norvasc] 5 mg PO DAILY Rosuvastatin [Crestor] 10 mg PO DAILY Metoprolol Succinate (ER) [Toprol Xl] 50 mg PO DAILY Apixaban [Eliquis] 5 mg PO BID Cholecalciferol [Vitamin D3 (25 Mcg = 1000 Iu)] 50 mcg PO DAILY Multivit-Min/FA/Lycopen/Lutein [Centrum Silver Tablet] 1 each PO DAILY Discharge Medication List Cholecalciferol [Vitamin D3 (25 Mcg = 1000 Iu)] 50 mcg PO DAILY 01/20/22 [History] Multivit-Min/FA/Lycopen/Lutein [Centrum Silver Tablet] 1 each PO DAILY 01/20/22 [History] amLODIPine [Norvasc] 5 mg PO DAILY 01/20/22 [History] Rosuvastatin [Crestor] 10 mg PO DAILY 01/28/24 [History] Apixaban [Eliquis] 5 mg PO BID 03/29/24 [History] Metoprolol Succinate (ER) [Toprol Xl] 50 mg PO DAILY 03/29/24 [History] Spironolactone 25 mg PO DAILY #90 tablet 04/04/24 [Rx] Valsartan 320 mg PO DAILY #90 tab 04/05/24 [Rx] Follow up Appointment(s)/Referral(s): Kirt Cabrera MD [STAFF PHYSICIAN] - 04/12/24 8:45 am Patient Instructions/Handouts: Cardiac Ablation (DC), Electrophysiology Study (DC) Activity/Diet/Wound Care/Special Instructions: Post EP study - Ablation instructions 1. Keep access sites dry for 2 days. 2. No heavy lifting or straining for 2 days. 3. Avoid bending the hips repeatedly for 2 days. 4. You may go up and down stairs slowly Call if the following is noted 1. Bleeding, increasing swelling or pain at the access sites. 2. Increasing chest discomfort, especially upon taking a deep breath. 3. Increasing shortness of breath, at rest or with exertion. 4. Undue cough / phlegm 5. Difficulty or pain while swallowing. 6. Pain or change in color in the extremities. 7. Fever, chills, rigors. 8. Increasing headache or neurologic symptoms. 9. Dizziness, fainting, palpitations Change spironolactone to 25 mg once daily Eliquis continue uninterrupted, 5 mg bid Continue all other medications Discharge Disposition: HOME SELF-CARE
== END 2024-04-05 12:16 | disposition home or self-care (01) ==
LOC: CATHEP 05:52 → 6NMEDSUR 17:10 → CATHEP 04-05 12:16
PROVIDERS: ATTEND Internal Medicine Clinical Cardiac Electrophysiology
DX: I48.0 Paroxysmal atrial fibrillation (principal); I11.9 Hypertensive heart disease without heart failure; I34.1 Nonrheumatic mitral (valve) prolapse; I34.0 Nonrheumatic mitral (valve) insufficiency; E78.5 Hyperlipidemia, unspecified; Z82.49 Family history of ischemic heart disease and other diseases of the circulatory system; Z79.01 Long term (current) use of anticoagulants; Z79.899 Other long term (current) drug therapy
CPT/HCPCS: 93005; 93623; 93656; 93657; 86900; 86901; 80053; 80061; 84443; 86850; C1759; C1894 ×2; C1769 ×3; C1760 ×2; C1730 ×2; C1893; C1733; C1766; J2001; Q9967; J1644

== ENCOUNTER → 2024-06-23 | Outpatient (CLI) | payer MEDICARE, BC ==
[2024-06-23 10:47] VITALS: BP 162/90; PULSE 64; RESP 16; TEMP 97.3
--- NOTE | 2024-06-23 11:02 | P.PROGSL ---
Subjective DATE: 06/23/2024 FOLLOW UP VISIT. Patient with obstructive sleep apnea hypopnea syndrome return to sleep center for follow-up visit. Recently patient had sleep study which documented obstructive sleep apnea hypopnea syndrome. I explained results of sleep studies to the patient in details. Patient was initiated on PAP therapy and today is first visit after treatment was started. Patient sleeps better after starting using CPAP and feels better during the day. Patient was able to use PAP equipment every night for the whole night. The patient does not have significant problems with the mask, PAP pressure and humidification. [place] sleepiness scale is 0. I checked information from PAP unit. PAP unit pressure 5-10, average 9 cm H2O. Usage is 100% for more then 4 hours, average 8.2 hours per night. Leak is 30 l/m, which is in acceptable range. Apnea Hypopnea Index is 1.4, which is normal. MEDICATIONS: Please see below During physical exam: GENERAL: A pleasant patient without any distress. VITAL SIGNS: Please see below, weight 201 pounds. HEENT: PERRLA, EOMI.low position of soft palate, Mallapati 23. NECK: Supple. No JVD. LUNGS: Clear to percussion and to auscultation. Good air exchange. No wheezing or rhonchi. HEART: S1, S2 regular. ABDOMEN: Soft and nontender.[] EXTREMITIES: No clubbing or cyanosis. [employer]ING [employer]NAGER: Awake, alert, and oriented x3. No focal deficit. Impressions: 1. Severe obstructive sleep apnea-hypopnea syndrome, AHI 34.4. Patient demonstrated great compliance with treatment, benefiting from treatment. Normal respiration on CPAP. 2. History of atrial fibrillation. 3. Hypertension. 4. Hyperlipidemia. Plan: 1. Continue using PAP equipment every night for the whole night. 2. To change air filter at least 1-2 times per month. 3. PAP unit should stay lower then position of the head. 4. Advised patient to remove all remaining water from humidifier canister daily and make it dry after each usage. Refill canister with fresh distilled water before each usage. 5. Sleep hygiene with regular time in bed for at least 8 hours. 6. Precautions related to driving. No driving if feel any sleepiness. 7. I will maintain prescription for PAP supplies including mask, tube, filters. 8. Follow up visit in 8 months or earlier if patient has any problems. 9. Watching weight. Thank you very much for allowing me to participate in the management of your patient. Tejas Fraire MD, PhD, FAASM. Diplomat of [place] [employer], Sleep Medicine Board by [place] [employer] Supervisor of [facility] [place] cc: Smith Maya MD Objective - Vital Signs Vital Signs: Vital Signs Temp 97.3 F L 06/23/24 10:46 Pulse 64 06/23/24 10:46 Resp 16 06/23/24 10:46 BP 162/90 06/23/24 10:46 Pulse Ox 97 06/23/24 10:46 FiO2 Intake & Output 06/22/24 06/23/24 06/23/24 18:59 06:59 18:59 Weight 91.172 kg Home Medications: Home Medications Medication Instructions Recorded Confirmed Type Cholecalciferol [Vitamin D3 (25 50 mcg PO DAILY 01/20/22 03/29/24 History Mcg = 1000 Iu)] Multivit-Min/FA/Lycopen/Lutein 1 each PO DAILY 01/20/22 03/29/24 History [Centrum Silver Tablet] amLODIPine [Norvasc] 5 mg PO DAILY 01/20/22 04/04/24 History Rosuvastatin [Crestor] 10 mg PO DAILY 01/28/24 04/04/24 History Apixaban [Eliquis] 5 mg PO BID 03/29/24 04/04/24 History Metoprolol Succinate (ER) [Toprol 50 mg PO DAILY 03/29/24 04/04/24 History Xl] Spironolactone 25 mg PO DAILY #90 tablet 04/04/24 Rx Valsartan 320 mg PO DAILY #90 tab 04/05/24 Rx
== END ==
LOC: 3 N SLEEP 10:35
PROVIDERS: ATTEND Internal Medicine
DX: G47.33 Obstructive sleep apnea (adult) (pediatric)
CPT/HCPCS: 99212